=== PATIENT | female | born 1950 | race African-American/Black ===

== ENCOUNTER → 2020-03-02 | Outpatient (CLI) | payer OTHER ==
--- NOTE | 2020-03-02 17:19 | CARD ---
MR#: [id number] Date of Study: 03/02/2020 Ordering Physician: LENORE FALCON, Referring Physician: LENORE FALCON, Tech: Sofia Fairbanks [facility] APPROVED REPORT EXAM: Two-dimensional and M-mode echocardiogram with Doppler and color Doppler. Other Information Quality : Fair Technically limited study due to body habitus. INDICATION Murmur 2D DIMENSIONS RVDd2.5 (2.9-3.5cm)Left Atrium(2D)2.9 (1.6-4.0cm) IVSd0.9 (0.7-1.1cm)Aortic Root(2D)2.7 (2.0-3.7cm) LVDd4.8 (3.9-5.9cm)LVOT Diameter2.1 (1.8-2.4cm) PWd0.9 (0.7-1.1cm)LVDs3.6 (2.5-4.0cm) FS (%) 23.9 %SV50.2 ml LVEF(%)50.0 (>50%) Aortic Valve AoV Peak Gray.122.2cm/sAoV VTI25.8cm AO Peak GR.6.0mmHgLVOT Peak Gray.87.5cm/s LVOT VTI 20.08cmAO Mean GR.3mmHg YUKO (VMAX)2.77me8CNN (VTI)2.72cm2 Mitral Valve MV E Ktqcfcys32.3cm/sMV DECEL [id number] MV A Jdrqysqy53.4cm/sMV [id number] E/A Ratio0.8MVA (PHT)3.07cm2 TDI E/Lateral E'7.4E/Medial E'11.8 Tricuspid Valve TR P. Lveauxwk717na/sRAP UOMPRPPT4cvKh TR Peak Gr.41shDbSNQQ35eaId Pulmonary Vein S1 Yfvqbkgl89.2cm/sD2 Mzoefclr83.0cm/s LEFT VENTRICLE The left ventricle is normal size. There is normal left ventricular wall thickness. Left ventricle sy stolic function is low normal. The Ejection Fraction is 50-55%. Septal motion consistent with conduct ion abnormality. Otherwise, grossly normal wall motion. Transmitral Doppler flow pattern is Grade I-a bnormal relaxation pattern. RIGHT VENTRICLE The right ventricle is normal size. The right ventricular systolic function is normal. ATRIA The left atrium size is normal. The right atrium size is normal. The interatrial septum is intact wit h no evidence for an atrial septal defect or patent foramen ovale as noted on 2-D or Doppler imaging. AORTIC VALVE The aortic valve is not well visualized. Doppler and Color Flow revealed no significant aortic regurg itation. There is no significant aortic valvular stenosis. MITRAL VALVE The mitral valve is normal in structure and function. There is no evidence of mitral valve prolapse. There is no mitral valve stenosis. Doppler and Color-flow revealed trace mitral regurgitation. TRICUSPID VALVE The tricuspid valve is normal in structure and function. Doppler and Color Flow revealed trace tricus pid regurgitation. The PA pressure was estimated at 29 mmHg. There is no tricuspid valve stenosis. PULMONIC VALVE The pulmonic valve is not well visualized. Doppler and Color Flow revealed no pulmonic valvular regur gitation. There is no pulmonic valvular stenosis. GREAT VESSELS The aortic root is normal in size. The ascending aorta is not well seen. The IVC is normal in size an d collapses >50% with inspiration. PERICARDIAL EFFUSION There is no evidence of significant pericardial effusion. Critical Notification Critical Value: No <Conclusion> Left ventricle systolic function is low normal. The Ejection Fraction is 50-55%. Septal motion consistent with conduction abnormality. Otherwise, grossly normal wall motion. Technically limited study Signed by : Jason Gerardo, Electronically Approved : 03/02/2020 17:18:53
== END | disposition home or self-care (01) ==
LOC: ECHO 12:36
PROVIDERS: ATTEND Internal Medicine Cardiovascular Disease
DX: R01.1 Cardiac murmur, unspecified (principal)
CPT/HCPCS: 93306

== ENCOUNTER → 2021-09-15 | Outpatient (CLI) | payer OTHER, MEDICAID ==
[2021-09-15 13:07] LABS: ALBUMIN 3.7 g/dL (3.4-5.0); ALBUMIN/GLOBULIN RATIO 0.9 (1.0-1.7); CALCIUM 9.3 mg/dL (8.5-10.1); CHOLESTEROL/HDL RATIO 3.9; CREATININE 0.7 mg/dL (0.6-1.0); GFR 100.4; POTASSIUM 4.7 mmol/L (3.5-5.1); TOTAL BILIRUBIN 0.4 mg/dL (0.2-1.0); TOTAL PROTEIN 7.7 g/dL (6.4-8.2)
[2021-09-15 23:08] LABS: CREAT RD UR 57.4 mg/dL (Not Estab.); MICRO CREAT RATIO <5 mg/g creat (0-29); MICROALB RD UR <3.0 ug/mL (Not Estab.)
[2021-09-16 01:09] LABS: HEMOGLOBIN A1C 6.5 % (4.8-5.6)
== END ==
LOC: LAB 12:08
PROVIDERS: ATTEND Hospitalist
DX: I10 Essential (primary) hypertension (principal); E11.9 Type 2 diabetes mellitus without complications; E78.5 Hyperlipidemia, unspecified
CPT/HCPCS: 80053; 80061; 82043; 82570; 83036